=== PATIENT | male | born 1940 | race Caucasian/White ===

== ENCOUNTER → 2016-10-24 | Outpatient (CLI) | payer MEDICARE, BC ==
[2016-01-15 12:51] VITALS: BP 146/65
[~2016-10-24] MED LIST: AMIT25TA PO; ANAS1TAB PO; ASPI-630 PO; CARDIO B; CITA10TA8 PO; CYCL10TA2 PO; DICL1TAB PO; GABA-586 PO; HYDR-2679 PO; HYDR-2680 PO; HYDR60TA PO; LEVO50TA5 PO; MORP15TA PO; MULT-460 PO; OMEG1CAP28 PO; PILO5TAB16 PO; PSYL0.528 PO; REGADENOSON 0.4 MG/5 ML DISP.SYRIN. IV ONE; SENN1TAB70 PO; TAMS0.4C97 PO; TIOT18CA IH; VENTOLIN HFA18 GM INH; VITA1TAB19 PO; VITA40TA PO; ZOLP10TA PO; [UNRECOGNIZED DRUG - CODE] TD
--- NOTE | 2016-10-24 11:25 | RAD ---
APPROVED REPORT Test Type: Pharmacological Stress Nurse/Tech: GIUSEPPE CHANDLER Test Indications: HEART BLOCK WITH A PACEMAKER Cardiac History: HEART BLOCK WITH A PACEMAKER, SEE EHR Medications: SEE EHR Medical History: SMOKER, SEE EHR Resting ECG: AV PACED Resting Heart Rate: 69 bpm Resting Blood Pressure: 129/61mmHg Pretest Chest Pain: No chest pain Nurse/Tech Notes LUNG SOUNDS CLEAR, S1S2 WNL. Consent: The procedure was explained to the patient in lay terms. Informed consent was witnessed. Zack eout was entered into [facility]. History and Stress Test performed by NADIRA Munoz, YVONNE (R) (N) Pharm. Details Pharmacologic stress testing was performed using 0.4mg per 5ml of regadenoson given intravenously ove r 7-10 seconds. Stress Symptoms FACIAL FLUSHING. POST EXERCISE Reason for Termination: Infusion complete Max HR: 96 bpm Max Blood Pressure: 129/61mmHg Blood Pressure response to exercise: Normal blood pressure response during stress. Heart Rate response to exercise: WNL Chest Pain: No. Arrhythmia: No. ST Change: No. INTERPRETATION Stress EKG Conclusion: Non diagnostic EKG due to paced rhythm. Imaging Protocol IMAGE PROTOCOL: Rest Tc-99m/stress Tc-99m 1 day Rest: Stress: Viability: Radiopharm.Tc99m LtqsgnmnhZl67v Sestamibi Dose12.8mCi 32mCi Duration 15min. 10min. Img Date 10/24/2016 10/24/2016 Inj-Img Jdty40vjk. 60min. Rest Admin Site:IV - Left AntecubitalAdministrator:GABO Velazquez Stress Admin Site: IV - Left AntecubitalAdministrator: NADIRA Munoz, YVONNE (R)(N) STRESS DATA End Diast. Vol.76.0mlAv. Heart Rate89.0bpm End Syst. Vol.32.0mlCO Index BSA0.0L/min Myocardial Ngdn228.0gEject. Huxkfnfa83.0% Stress Rates Pk. Fill Rate4.20EDV/secLVtime Pk. Fill 183.35msec Pk. Empty Rate3.19ESV/secLVtime Pk. Eject83.05msec 02/18 Pk. Fill0.64EDV/sec Stress Scores Regional WT1.00Summed WT24.00 Regional WM0.00Summed WM7.00 LV Perfusion There is a moderate sized, distal anterior, apical and distal inferior wall FIXED defect suggestive o f prior infarct without ischemia or viability. Wall Motion Apical hypokinesis. EF 58%. LV Perf. Quant 17 Seg. SSS12.00 17 Seg. SRS17.00 17 Seg. SDS0.00 Stress Defect Extent (% LAD)27.50Rest Defect Extent (% LAD)48.10Rev. Defect Extent (% LAD)0.00 Stress Defect Extent (% LCX) 22.50Rest Defect Extent (% LCX)27.50Rev. Defect Extent (% LCX)0.00 Stress Defect Extent (% RCA)10.00Rest Defect Extent (% RCA)14.40Rev. Defect Extent (% RCA)0.00 Stress Defect Extent (% OLIVA)23.70Rest Defect Extent (% OLIVA)36.70Rev. Defect Extent (% OLIVA)0.00 Other Information Quality:Good Risk Assessment: Low-Moderate Risk Conclusion 1. Non-diagnostic EKG due to v-paced rhythm. 2. Fixed distal anterior/apical/inferior wall defect. 3. Low to moderate risk. 4. Low normal EF at 58%
== END | disposition home or self-care (01) ==
LOC: NM 07:11
PROVIDERS: ATTEND Internal Medicine Cardiovascular Disease
DX: I44.2 Atrioventricular block, complete (principal)
CPT/HCPCS: 78452; 93017; 96374; 96375; 96376; A9500; J2785

== ENCOUNTER → 2018-03-02 | Outpatient (CLI) | payer MEDICARE, BC ==
[2016-01-15 12:51] VITALS: BP 146/65
[~2018-03-02] MED LIST changes: +APIX5TAB PO; +DULO20CA PO; +FURO20TA3 PO; -GABA-586 PO; +GABA300C18 PO; +GADOBUTROL 7.5 MMOL/7.5 ML VIAL IV ONE; +MORP15TA3 PO; +POTA15TA9 PO; -REGADENOSON 0.4 MG/5 ML DISP.SYRIN. IV ONE; +ZOLP10TA4 PO
--- NOTE | 2018-03-02 13:43 | NUR ---
Pt monitored by RN during MRI. Pt tolerated well
--- NOTE | 2018-03-02 16:13 | RAD ---
MRI of the lumbar spine without and with contrast 03/02/2018 CLINICAL HISTORY: Low back pain. History of previous lumbar spine surgery. TECHNIQUE: Unenhanced T1-weighted and T2-weighted sagittal and axial and inversion recovery sagittal images of the lumbar spine were obtained. After the intravenous administration of 7.5 cc of Gadavist, enhanced T1-weighted sagittal and axial images of the lumbar spine were obtained. FINDINGS: Very mild S-shaped curvature of the thoracolumbar spine is seen. The patient is post laminectomy and fusion using pedicle screws, stabilizing rods and bone graft material extending from L3 to S1. Degenerative signal changes are seen involving the remaining discs of the cervical spine. Degenerative signal changes are seen within the marrow surrounding these discs. Loss of height of the L2-3 disc is noted. The conus medullaris is normal morphology, position, and signal characteristics. At the L1-2 disc space there is a mild generalized disc bulge. Degenerative changes are seen involving the facet joints bilaterally. There is mild ligamentum flavum hypertrophy bilaterally. These findings when combined do not result in significant central spinal canal or neural foraminal stenosis. At the L2-3 disc space there is a mild generalized disc bulge. Degenerative changes are seen involving the facet joints bilaterally. There is mild ligamentum flavum hypertrophy bilaterally. These findings when combined result in mild central spinal canal stenosis. Moderate bilateral neural foraminal stenosis is seen. At the L3-4, L4-5 and L5-S1 levels, postsurgical changes are seen as outlined above. Degenerative changes are seen involving the facet joints. These findings do not result in significant central spinal canal or neural foraminal stenosis. IMPRESSION: 1. Post laminectomy and fusion extending from L3 to S1. 2. The changes of degenerative disc disease are seen involving lumbar spine. These findings result in mild central spinal canal stenosis with moderate bilateral neural foraminal stenosis at L2-3. Electronically signed by: Jaquan Munoz MD (03/02/2018 4:09 PM) [facility]
== END | disposition home or self-care (01) ==
LOC: MRI 11:22
PROVIDERS: ATTEND Physician Assistant Medical
DX: M51.36 Other intervertebral disc degeneration, lumbar region (principal); M48.061 Spinal stenosis, lumbar region without neurogenic claudication; M47.816 Spondylosis without myelopathy or radiculopathy, lumbar region
CPT/HCPCS: 72158; A9585

== ENCOUNTER → 2018-03-05 | Day surgery (SDC) | payer MEDICARE, BC ==
[~2018-03-05] MED LIST changes: -GADOBUTROL 7.5 MMOL/7.5 ML VIAL IV ONE; +IV RINGERS,LACTATED 1000ML 1,000 ML IV SCH; +LIDOCAINE 1% PF 2 ML VIAL. ID PRN; +ONDANSETRON PF 4 MG/2 ML VIAL. IV PRN; +PROCHLORPERAZINE 10 MG/2 ML VIAL. IV PRN; +PROPOFOL 20 ML IV ONE; +fentaNYL PF VIAL 100 MCG/2 ML VIAL IV PRN
[2018-03-05 09:49] VITALS: BP 120/60
--- NOTE | 2018-03-05 10:30 | HP ---
ADMIT DATE: 03/05/2018 REFERRING PHYSICIAN: Genevieve CLEANING. HISTORY OF PRESENT ILLNESS: This is a 77-year-old male whose past medical history is significant for COPD, emphysema, diverticular disease as well as personal history of colon polyps and a family history of colon cancer, who was seen with abdominal pain and worsening constipation. He does have spinal stenosis, for which he is following up with Dr. Brice in the next week or two. He has been taking ajym-cvc-ngnjbjt laxatives as well as fiber, with minimal improvement in his symptoms. With this, he is here today for further evaluation and care, but no change in weight. No bleeding. PAST MEDICAL HISTORY: Spinal stenosis, COPD, diverticular disease, history of skin cancers, history of colonic polyps and history of hypothyroidism. ALLERGIES: OXYCODONE. MEDICATIONS: Include Eliquis, cyclobenzaprine, diclofenac, Cymbalta, furosemide, gabapentin, hydrocodone, levothyroxine, morphine, multivitamins, pilocarpine, potassium citrate, psyllium, senna, tamsulosin, Testosterone and zolpidem. FAMILY AND SOCIAL HISTORY: He is a former smoker, social drinker. PAST SURGICAL HISTORY: Status post hernia repair, cholecystectomy, disk fusion and laminectomy, bone spur. REVIEW OF SYSTEMS: Per records. PHYSICAL EXAMINATION: GENERAL: Reveals a well-nourished, well-developed male. VITAL SIGNS: Temperature is 97.2, pulse 95 and respirations 20. HEENT EXAMINATION: Normocephalic and atraumatic. Pupils and extraocular muscles are not tested. Sclerae anicteric. NECK: Supple. LUNGS: Clear. CARDIOVASCULAR EXAMINATION: Reveals S1 and S2, without S3, S4 or appreciable murmur. ABDOMEN: Abdominal examination reveals a soft abdomen. Normal bowel sounds, without appreciable hepatosplenomegaly. EXTREMITIES: Extremity examination reveals no cyanosis, clubbing or edema. IMPRESSION AND PLAN: Change in bowel habits with a family history of colon cancer and personal history of colon polyps. Interval colonoscopy is suggested. Risks and benefits, including the risk of hemorrhage and perforation have been previously discussed with the patient, who is willing to proceed. MC OBRIEN MD DR: EMILEE/jason JOB#: [id number] / [id number] GENEVIEVE Louis
== END | disposition home or self-care (01) ==
LOC: SURG 07:56
PROVIDERS: ATTEND Internal Medicine Gastroenterology
DX: K57.30 Diverticulosis of large intestine without perforation or abscess without bleeding (principal); K64.0 First degree hemorrhoids; I10 Essential (primary) hypertension; J43.9 Emphysema, unspecified; G47.33 Obstructive sleep apnea (adult) (pediatric); Z95.0 Presence of cardiac pacemaker; Z86.010 Personal history of colon polyps; Z79.899 Other long term (current) drug therapy; Z79.01 Long term (current) use of anticoagulants; Z85.828 Personal history of other malignant neoplasm of skin; Z98.890 Other specified postprocedural states; Z80.0 Family history of malignant neoplasm of digestive organs; E03.9 Hypothyroidism, unspecified; Z88.6 Allergy status to analgesic agent; Z87.891 Personal history of nicotine dependence; Z72.89 Other problems related to lifestyle; Z90.49 Acquired absence of other specified parts of digestive tract; Z98.1 Arthrodesis status
CPT/HCPCS: 45378; J2704

== ENCOUNTER → 2018-10-20 | Outpatient (CLI) | payer MEDICARE, BC ==
[2018-03-05 09:49] VITALS: BP 120/60
[~2018-10-20] MED LIST changes: -IV RINGERS,LACTATED 1000ML 1,000 ML IV SCH; -LIDOCAINE 1% PF 2 ML VIAL. ID PRN; +MORP-15 PO; -MORP15TA3 PO; -ONDANSETRON PF 4 MG/2 ML VIAL. IV PRN; -PROCHLORPERAZINE 10 MG/2 ML VIAL. IV PRN; -PROPOFOL 20 ML IV ONE; -fentaNYL PF VIAL 100 MCG/2 ML VIAL IV PRN
--- NOTE | 2018-10-21 13:07 | CARD ---
MR#: [id number] Date of Study: 10/20/2018 Ordering Physician: BRADLY RIVERA, Referring Physician: BRADLY RIVERA, Tech: Betzaida Retana APPROVED REPORT EXAM: Two-dimensional and M-mode echocardiogram with Doppler and color Doppler. Other Information Quality : AverageHR: 90bpm Rhythm : Pacemaker INDICATION Arrhythmia Complete heart block Surgery/Intervention Pacemaker: Date: 2017 2D DIMENSIONS RVDd3.1 (2.9-3.5cm)Left Atrium(2D)2.9 (1.6-4.0cm) IVSd1.2 (0.7-1.1cm)Aortic Root(2D)2.9 (2.0-3.7cm) LVDd4.6 (3.9-5.9cm)LVOT Diameter2.1 (1.8-2.4cm) PWd1.0 (0.7-1.1cm)LVDs3.1 (2.5-4.0cm) FS (%) 31.3 %SV56.8 ml Aortic Valve AoV Peak Rhys.114.4cm/sAoV VTI22.8cm AO Peak GR.5.2mmHgLVOT Peak Rhys.91.9cm/s LVOT VTI 17.74cmAO Mean GR.3mmHg SYDNEY (VMAX)2.53kv2FQH (VTI)2.72cm2 Mitral Valve MV E Jusbwsnu49.1cm/sMV DECEL JGHB690ig MV A Cacjappu61.1cm/sMV JSZ99zk E/A Ratio0.6MVA (PHT)3.15cm2 TDI E/Lateral E'5.6E/Medial E'8.2 Pulmonary Valve PV Peak Mrnpmkwj095.7cm/sPV Peak Grad.4mmHg Tricuspid Valve TR P. Wydibrgv347oe/sRAP AEERJJDD1gdTt TR Peak Gr.65joMpQGJQ20lfPk Pulmonary Vein S1 Zzayinec20.4cm/sD2 Vbwoyedb95.9cm/s PVa ezofrgpq359mabw LEFT VENTRICLE The left ventricle is normal size. There is borderline to mild concentric left ventricular hypertroph y. The left ventricular systolic function is normal and the ejection fraction is within normal range. The Ejection Fraction is 50-55%. Septal motion consistent with conduction abnormality. Transmitral D oppler flow pattern is Grade I-abnormal relaxation pattern. RIGHT VENTRICLE The right ventricle is normal size. There is normal right ventricular wall thickness. The right ventr icular systolic function is normal. There are pacemaker leads in the right ventricle and atrium. ATRIA The left atrium size is normal. The right atrium size is normal. There is a pacemaker lead seen in th e right atrium. The interatrial septum is intact with no evidence for an atrial septal defect or brown nt foramen ovale as noted on 2-D or Doppler imaging. AORTIC VALVE The aortic valve is normal in structure and function. Doppler and Color Flow revealed trace aortic re gurgitation. There is no significant aortic valvular stenosis. MITRAL VALVE The mitral valve is normal in structure and function. There is no evidence of mitral valve prolapse. There is no mitral valve stenosis. Doppler and Color-flow revealed trace mitral regurgitation. TRICUSPID VALVE The tricuspid valve is normal in structure and function. Doppler and Color Flow revealed trace to mil d tricuspid regurgitation with an estimated PAP of 20 mmHg. There is no tricuspid valve stenosis. PULMONIC VALVE The pulmonic valve is not well visualized. Doppler and Color Flow revealed trace pulmonic valvular re gurgitation. GREAT VESSELS The aortic root is normal in size. The IVC is normal in size and collapses >50% with inspiration. PERICARDIAL EFFUSION There is no evidence of significant pericardial effusion. Critical Notification Critical Value: No <Conclusion> The left ventricle is normal size. The left ventricular systolic function is normal and the ejection fraction is within normal range. The Ejection Fraction is 50-55%. There is borderline to mild concentric left ventricular hypertrophy. There are pacemaker leads in the right ventricle and atrium. There is no significant aortic valvular stenosis. Doppler and Color Flow revealed trace aortic regurgitation. Doppler and Color-flow revealed trace mitral regurgitation. Doppler and Color Flow revealed trace to mild tricuspid regurgitation with an estimated PAP of 20 mmH g. Signed by : David Arias MD Electronically Approved : 10/20/2018 15:19:54
== END | disposition home or self-care (01) ==
LOC: ECHO 10:32
PROVIDERS: ATTEND Internal Medicine Cardiovascular Disease
DX: I07.1 Rheumatic tricuspid insufficiency (principal); I44.2 Atrioventricular block, complete; Z95.0 Presence of cardiac pacemaker
CPT/HCPCS: 93306

== ENCOUNTER → 2019-10-26 | Outpatient (CLI) | payer MEDICARE, BC ==
[2019-05-16 11:00] VITALS: BP 134/78
[~2019-10-26] MED LIST changes: +LEVO75TA5 PO
--- NOTE | 2019-10-26 12:03 | CARD ---
MR#: [id number] Date of Study: 10/26/2019 Ordering Physician: BRADLY RIVERA, Referring Physician: BRADLY RIVERA Tech: Mabel Rivera RDCS APPROVED REPORT EXAM: Two-dimensional and M-mode echocardiogram with Doppler and color Doppler. Other Information Quality : Good Rhythm : Pacemaker INDICATION Complete Heart Block Surgery/Intervention Pacemaker: Date: 2017 2D DIMENSIONS RVDd2.5 (2.9-3.5cm)Left Atrium(2D)3.6 (1.6-4.0cm) IVSd1.0 (0.7-1.1cm)Aortic Root(2D)3.0 (2.0-3.7cm) LVDd5.3 (3.9-5.9cm)LVOT Diameter1.9 (1.8-2.4cm) PWd1.0 (0.7-1.1cm)LVDs3.2 (2.5-4.0cm) FS (%) 30.0 %SV95.8 ml LVEF(%)60.0 (>50%) Aortic Valve AoV Peak Rhys.116.1cm/sAoV VTI21.4cm AO Peak GR.5.4mmHgLVOT Peak Rhys.96.8cm/s LVOT VTI 18.95cmAO Mean GR.3mmHg SYDNEY (VMAX)2.15gk4OXC (VTI)2.64cm2 Mitral Valve MV E Lskeoxcs61.4cm/sMV DECEL [id number] MV A Ygpjxlei63.6cm/sMV [id number] E/A Ratio0.8MVA (PHT)1.98cm2 TDI E/Lateral E'9.5E/Medial E'10.8 Pulmonary Vein S1 Nlhjwthn30.0cm/sD2 Uibavqoy81.9cm/s LEFT VENTRICLE The left ventricle is normal size. There is normal left ventricular wall thickness. The left ventricu lar systolic function is normal and the ejection fraction is within normal range. The Ejection Fracti on is 55-60%. There is normal LV segmental wall motion. Transmitral Doppler flow pattern is Grade I-a bnormal relaxation pattern. RIGHT VENTRICLE The right ventricle is normal size. The right ventricular systolic function is normal. There is a pac emaker lead in the right ventricle. ATRIA The left atrium size is normal. The right atrium size is normal. A pacemaker is seen in the right atr ium consistent with history. The interatrial septum is intact with no evidence for an atrial septal d efect or patent foramen ovale as noted on 2-D or Doppler imaging. AORTIC VALVE The aortic valve is calcified but opens well. Doppler and Color Flow revealed no significant aortic r egurgitation. There is no significant aortic valvular stenosis. MITRAL VALVE The mitral valve is calcified but opens well. There is no evidence of mitral valve prolapse. There is no mitral valve stenosis. Doppler and Color Flow revealed no mitral valve regurgitation noted. TRICUSPID VALVE The tricuspid valve is normal in structure and function. Doppler and Color Flow revealed no tricuspid valve regurgitation noted. There is no tricuspid valve stenosis. PULMONIC VALVE The pulmonary valve is normal in structure and function. Doppler and Color Flow revealed mild pulmoni c valvular regurgitation. There is no pulmonic valvular stenosis. GREAT VESSELS The aortic root is normal in size. The ascending aorta is normal in size. The IVC is normal in size a nd collapses >50% with inspiration. PERICARDIAL EFFUSION There is no evidence of significant pericardial effusion. Critical Notification Critical Value: No <Conclusion> The left ventricular systolic function is normal and the ejection fraction is within normal range. Th e Ejection Fraction is 55-60%. There is normal LV segmental wall motion. There is a pacemaker lead in the right ventricle. Signed by : Gerson Aviles, Electronically Approved : 10/26/2019 12:03:25
== END | disposition home or self-care (01) ==
LOC: ECHO 10:22
PROVIDERS: ATTEND Internal Medicine Cardiovascular Disease
DX: I08.8 Other rheumatic multiple valve diseases (principal); I44.2 Atrioventricular block, complete; Z95.0 Presence of cardiac pacemaker
CPT/HCPCS: 93306

== ENCOUNTER → 2020-10-19 | Outpatient (CLI) | payer MEDICARE, BC ==
[2019-05-16 11:00] VITALS: BP 134/78
--- NOTE | 2020-10-19 14:12 | NUR ---
PT monitored during MRI. VSS. BP 125/78. HR 88. Pacemaker Rep at bedside.
--- NOTE | 2020-10-19 15:57 | RAD ---
EXAM: Lumbar spine MRI without contrast. HISTORY: Pain. TECHNIQUE: Multiplanar, multisequence magnetic resonance imaging of the lumbar spine was performed wi thout contrast. COMPARISON: 12/31/2018 FINDINGS: The lumbosacral junction is excluded from the ieecw-yh-olny. There is instrumented posterio r spinal fusion and disc space fusion device placement at L3-L4. There is partial visualization of po sterior fusion instrumentation at S1. There is 3 mm retrolisthesis of L2 on L3. There is severe degen erative endplate remodeling with disc space narrowing and osteophytosis at this level. There is mild endplate remodeling at the remainder of the visualized thoracic and lumbar levels. There are few endp late Schmorl's nodes. There are few osseous hemangiomas. There is no suspicious osseous lesion. The c onus terminates at T12-L1. There is renal atrophy. At T8-T9, there is a posterior central disc protrusion and osteophyte complex which effaces the ventr al thecal sac. There is minimal central canal stenosis. At T9-T10, T10-T11 and T11-T12, there is no stenosis. At T12-L1, there is a disc bulge and right anterior predominant endplate osteophytosis. There is mild left facet arthropathy. There is no stenosis. At L1-L2, there is a disc bulge and anterior predominant endplate osteophytosis. There is mild latera l facet arthropathy. There is no stenosis. At L2-L3, there are right greater than left foraminal to extra foraminal disc protrusions and osteoph yte complexes superimposed on a disc bulge and anterior predominant endplate osteophytosis. There is retrolisthesis. There is severe bilateral facet arthropathy. There is severe left greater than right foraminal stenosis. There is mild central canal stenosis. At L3-L4, there is instrumented fusion and laminectomy decompression. There is no stenosis. At L4-L5, there is noninstrumented fusion and laminectomy decompression. There is no stenosis. At L5-S1, this level is excluded from the gkrqv-xp-tgiy on T1 and T2-weighted sagittal images. There is posterior spinal fusion instrumentation and laminectomy decompression. There is no convincing sten osis on axial images. IMPRESSION: 1. Instrumented posterior spinal fusion and laminectomy decompression at L3-S1. There is no convincin g stenosis at the fused levels. 2. Degenerative change involving the lower thoracic and lumbar spine, primarily at L2-L3. This is ass ociated with severe left greater than right foraminal and mild central canal stenosis at this level. These findings are not significantly changed compared to the prior study. Electronically signed by: Valeria Nowak MD (10/19/2020 3:55 PM) [id number]
== END ==
LOC: MRI 13:29
PROVIDERS: ATTEND Physician Assistant Medical
DX: M47.815 Spondylosis without myelopathy or radiculopathy, thoracolumbar region (principal); M51.25 Other intervertebral disc displacement, thoracolumbar region; M48.061 Spinal stenosis, lumbar region without neurogenic claudication; M25.78 Osteophyte, vertebrae
CPT/HCPCS: 72148